=== PATIENT | female | born 1965 | race Caucasian/White ===

== ENCOUNTER 2016-10-28 06:33 | Day surgery (SDC) | payer BC ==
[~2016-10-28 06:33] MED LIST: Dextrose 5%-0.45% NaCl 1,000 ML IV SCH; Midazolam 1 MG/ML 2 ML SDV ONE; Sodium Chloride 0.9% 10 ML Syringe FLUSH PRN; fentaNYL 100 MCG/2 ML SDV ONE
[2016-10-28] MEDS ORDERED: fentaNYL 100 MCG/2 ML SDV IV ONE ×5 (07:14→16:33)
[2016-10-28] MEDS ORDERED: Midazolam 1 MG/ML 2 ML SDV IV ONE ×7 (07:15→16:33)
--- NOTE | 2016-10-28 08:30 | OR ---
DATE: 10/28/2016 PROCEDURE: Total colonoscopy. INSTRUMENT USED: PCF-H180AL Olympus video colonoscope. PREMEDICATIONS: Fentanyl 150 mcg intravenous, Versed 4 mg intravenous. Nasal O2 cannula. The procedure was done under pulse oximetry, BP recording, and environmental monitoring technician. INDICATION: Iron-deficiency anemia. Colonoscopic examination is done for detection of any polypoid lesions and removal, endoscopic hemostasis therapy if needed. DESCRIPTION OF PROCEDURE: Initial rectal exam was unremarkable. Rigid anoscopy was normal. The colonoscope was passed with ease up to the ileocecal area, photographs were taken of the normal appearing cecum, identified by double- bulged ileocecal folds. No bleeding was noted from any of the visualized areas at the commencement of the examination. No stricture. No vascular ectasia. No large isolated ulcerations seen. No evidence of diffuse inflammatory bowel disease in the form of friability, contact bleeding, or ulcerations. No polyp or tumor mass identified. Probing the proximal sides of folds and flexures, using adequate distention and clearing of the stool material, withdrawal of the scope was made, cecum to rectum time over 6 minutes. No bleeding was noted from any of the visualized areas at the completion of examination. IMPRESSION: Normal study. The patient tolerated the procedure well. [facility] /[id number]
[2016-12-09 13:40] VITALS: BP 100/69
== END 2016-10-28 09:40 | disposition home or self-care (01) ==
LOC: DL.ENDO 06:33
PROVIDERS: ATTEND Internal Medicine Gastroenterology
DX: Z12.11 Encounter for screening for malignant neoplasm of colon (principal); Z88.2 Allergy status to sulfonamides; Z98.890 Other specified postprocedural states
CPT/HCPCS: 45378; J2250; J3010; J7042